=== PATIENT | female | born 1960 | race Caucasian/White ===

== ENCOUNTER 2017-04-17 06:31 | Observation (INO) | payer BC, OTHER ==
[2017-04-17] MEDS ORDERED: Aspirin 325 MG TAB ONE (07:58)
[2017-04-17 08:41] LABS: #Eosinphils 0.1 thou/uL (0.0-0.7); #Lymphocytes 1.5 thou/uL (1.20-3.40); #Monocytes 0.4 thou/uL (0.11-0.59); #Neutrophils 3.6 thou/uL (1.40-6.50); %Basophils 0.7 % (0.0-1.0); %Eosinophils 1.4 % (0.0-10.0); %Monocytes 6.5 % (0.0-10.0); %Neutrophils 64.3 % (42.0-75.0); Hemoglobin 14.7 g/dL (12.0-16.0); Mean Corpuscular HGB CONC 34.8 g/dL (32.0-36.0); Mean Corpuscular Hemoglobin 32.6 pg (27.0-31.0); Mean Corpuscular Volume 93.7 fl (81.0-99.0); Mean Platelet Volume 7.2 fL (7.4-10.4); Platelet Count 181 thou/uL (130-400); RBC Distribution Width 11.4 % (11.5-14.5); White Blood Cell (WBC) Count 5.6 thou/uL (4.8-10.8)
[2017-04-17 09:02] LABS: ALT (SGPT) 32 U/L (8-55); AST (SGOT) 22 U/L (5-34); Albumin 4.6 g/dL (3.5-5.0); Alkaline Phosphatase 77 U/L (40-150); Anion Gap 14 mmol/L (10-20); BUN (Urea Nitrogen) 12 mg/dL (9.8-20.1); Bilirubin, Total 1.2 mg/dL (0.2-1.2); CK (CPK) 80 U/L (29-168); Calc. Creatinine Clearance 0 mL/min (70-130); Calcium 9.8 mg/dL (7.8-10.44); Carbon Dioxide 30 mmol/L (22-29); Chloride 103 mmol/L (98-107); Estimated GFR-MDRD 77; Globulin 2.8 g/dL (2.4-3.5); Glucose 100 mg/dL (70-105); Potassium 3.7 mmol/L (3.5-5.1); Protein, Total 7.4 g/dL (6.0-8.3); Sodium 143 mmol/L (136-145)
[2017-04-17 09:06] LABS: CKMB 1.9 ng/mL (0-6.6); Troponin I Less than 0.010 ng/mL (< 0.028)
--- NOTE | 2017-04-17 09:17 | RAD ---
PORTABLE AP CHEST: Date: 04/17/17 HISTORY: Chest pain. COMPARISON: 12/09/15. FINDINGS: Cardiac silhouette and pulmonary vasculature are within normal limits. The lungs remain clear. Surgic al clips again overlie the left axillary region. There has been no interval change from prior exam. IMPRESSION: No acute cardiopulmonary process. POS: [facility]
[2017-04-17 12:11] LABS: Troponin I 0.016 ng/mL (< 0.028)
[2017-04-17] MEDS ORDERED: Ondansetron HCl/PF 4 MG/2 ML Vial IVP PRN (12:15)
[2017-04-17] MEDS ORDERED: Acetaminophen 325 MG TAB PO PRN ×2 (12:15→12:28)
[2017-04-17] MEDS ORDERED: Ondansetron ODT 4 MG TAB SL PRN (12:15)
[2017-04-17] MEDS ORDERED: Lorazepam 1 MG TAB PO PRN (12:28)
[2017-04-17] MEDS ORDERED: HYDROcodone/Acetaminophen 5/325 mg Tablet PO PRN (12:28)
[2017-04-17] MEDS ORDERED: hydrALAZINE 20 MG/ML VIAL SLOW IVP PRN (12:28)
[2017-04-17] MEDS ORDERED: Mag-Al 1200 mg/1200 mg/30 ML UDCUP PO PRN (12:28)
[2017-04-17] MEDS ORDERED: cloNIDine 0.1 MG TAB PO PRN (12:28)
[2017-04-17 12:50] VITALS: BMI 29.8
[2017-04-17 13:01] LABS: Cardiac Risk 2.7 (Less than 4.5)
[2017-04-17] MEDS: Nitroglycerin 2% Ointment 1 INCH/1 GM Packet TOP SCH ×2 (14:24→20:58)
[2017-04-17 14:56] LABS: Troponin I Less than 0.010 ng/mL (< 0.028)
--- NOTE | 2017-04-17 15:15 | HP ---
PRIMARY CARE PHYSICIAN: Dr. De Leon. Patient also sees Dr. Garcia locally for Cardiology. CHIEF COMPLAINT: Blood pressure has been fluctuating and not feeling good and chest tightness. HISTORY OF PRESENT ILLNESS: Ms. Noble is a very pleasant 56-year-old female that has a history of hypertension and dyslipidemia. She says that she was doing fine until last night when she says she jenn thomason was not feeling well, and she says that she took her blood pressure and noticed it was aroun d 158/90. She says it was almost time for her usual evening dose of blood pressure medication, so brad colin took them early and says that the blood pressure did go down. She went to sleep and then she awoke at 4:30 in the morning feeling anxious and having some chest tightness. She thought it could be an anxiety attack, as her recently 3 months ago. So, she took an alprazolam and not ed at that time that her blood pressure was 169/93, and because it had never been that high before brad shaw was concerned. She took an additional lisinopril and that is when she started feeling a bit heavy in her chest again, and for this reason, she came to the ER for evaluation. She says she has not had any recent problems such as cough or congestion. She does say that she occasionally will feel somet imes heart racing, and actually her primary care physician had increased her dose of carvedilol as a result of this. She denies taking any sthi-uwz-eukacuq decongestants, but did have some sinus compla ints and went to Urgent Care and had been given some long-acting steroids. Then this was followed up with a short-acting steroid at her primary care physician's office. REVIEW OF SYSTEMS: Constitutional: There have been no fevers or chills, no night sweats, no weight loss. HEENT: No headaches, no dizziness, no visual changes, no sore throat, rhinorrhea, neck pain, no adenopathy. Pulmonary: No hemoptysis, no cough, no wheezing. Cardiovascular: She denies any PN D, no orthopnea. No lower extremity edema. Gastrointestinal: No abdominal pain, no nausea, no vomi ting, no change in bowels. Genitourinary: No urinary frequency, hematuria, no hesitancy. Neurologi c: No focal weakness, numbness, no seizures. Psychiatric: No symptoms of anxiety or depression. S kin and Integument: No skin changes. No rash. PAST MEDICAL HISTORY: Significant for breast cancer and hypertension. PAST SURGICAL HISTORY: She had a metastatic lesion in the liver, which was removed. Also, has had a lumpectomy and hysterectomy and bunionectomy. ALLERGIES: No known drug allergies. SOCIAL HISTORY: She is . She is a nonsmoker. She drinks socially. FAMILY HISTORY: Significant for heart disease in her father, as well as her mother. They both in their 70s. CURRENT MEDICATIONS: Caltrate 600 plus D, lisinopril 10 mg daily, vitamin B complex with C daily, ca rvedilol 6.25 mg twice a day, venlafaxine 150 mg daily, aspirin 81 mg a day, Crestor 5 mg a daily, om ega 3 fatty acids once a day, and alprazolam 0.25 mg q.6 hours as needed. PHYSICAL EXAMINATION: GENERAL: She is alert and oriented. She appears to be in no acute distress. VITAL SIGNS: Blood pressure is 136/80, heart rate 68, respiratory rate of 18, temperature is 98.1. HEENT: Her pupils are equal, round, and reactive. Extraocular muscles are intact. Sclerae are anic teric. Throat: There is no erythema, no exudates. NECK: No adenopathy, no bruits. LUNGS: Clear. There is no wheezing, no rales. CARDIOVASCULAR: She has a normal S1, S2. I did not appreciate an S3 or S4, no murmurs, clicks, or r ubs. ABDOMEN: Soft, it is nontender, nondistended. Positive for bowel sounds. No rebound, no guarding. EXTREMITIES: There is no clubbing, cyanosis, no edema. NEUROLOGICALLY: The exam is nonfocal. LABORATORY RESULTS: White blood cell count 5.6, hemoglobin 14.7, hematocrit is 42.1, platelet count is 181. D-dimer is less than 0.27. Sodium is 143, potassium 3.7, chloride is 103, CO2 is 30, BUN of 12, creatinine 0.77, glucose is 100. TSH was 1.1889. ASSESSMENT AND PLAN: This is a pleasant 56-year-old female that presents to the emergency room with fluctuating blood pressures and chest tightness. She has a history of hypertension and dyslipidemia, which could place her at a higher risk for coronary artery disease. For this reason, we will go ahe ad and place her on observation, trend her cardiac enzymes, and get a nuclear stress test to further assess her risks. For hypertension, which appears to be labile, the elevation in blood pressure could be the result of the recent steroids that were given. We will continue to trend this and likely her primary care phys kate can help make adjustments in her blood pressure medication if needed. The patient has had an e chocardiogram or MUGA scan at [facility] [place] [place] to help in surveillance of heart failure, and she says th at her last ejection fraction was 60%. This was in surveillance, because she had been taking Hercept in for over 10 years. The ejection fraction is actually an improvement on that which she has had in the past. For this reason, we will not repeat an echo.
[2017-04-17] MEDS: Famotidine 20 MG TAB PO SCH (20:44)
[2017-04-18] MEDS: Nitroglycerin 2% Ointment 1 INCH/1 GM Packet TOP SCH ×2 (04:59→15:00)
[2017-04-18 05:41] LABS: #Eosinphils 0.1 thou/uL (0.0-0.7); #Lymphocytes 1.9 thou/uL (1.20-3.40); #Monocytes 0.5 thou/uL (0.11-0.59); %Basophils 0.6 % (0.0-1.0); %Eosinophils 2.4 % (0.0-10.0); %Lymphocytes 34.8 % (21.0-51.0); %Monocytes 8.9 % (0.0-10.0); %Neutrophils 53.3 % (42.0-75.0); Hemoglobin 13.2 g/dL (12.0-16.0); Mean Corpuscular Hemoglobin 32.8 pg (27.0-31.0); Mean Corpuscular Volume 93.8 fl (81.0-99.0); Mean Platelet Volume 7.2 fL (7.4-10.4); Platelet Count 156 thou/uL (130-400); RBC Distribution Width 11.4 % (11.5-14.5); Red Blood Cell (RBC) Count 4.03 mill/uL (4.20-5.40); White Blood Cell (WBC) Count 5.6 thou/uL (4.8-10.8)
[2017-04-18 05:47] LABS: Anion Gap 9 mmol/L (10-20); BUN (Urea Nitrogen) 12 mg/dL (9.8-20.1); Calc. Creatinine Clearance 106 mL/min (70-130); Calcium 8.7 mg/dL (7.8-10.44); Carbon Dioxide 27 mmol/L (22-29); Chloride 111 mmol/L (98-107); Estimated GFR-MDRD 86; Glucose 94 mg/dL (70-105); Potassium 3.7 mmol/L (3.5-5.1); Sodium 143 mmol/L (136-145)
[2017-04-18] MEDS ORDERED: Aspirin 325 MG TAB PO SCH (09:00)
[2017-04-18] MEDS: Famotidine 20 MG TAB PO SCH (11:30)
[2017-04-18] MEDS ORDERED: Ibuprofen 600 MG TAB PO PRN (12:19)
[2017-04-18 16:16] VITALS: BP 180/80; TEMP 98.1
--- NOTE | 2017-04-18 16:16 | NM ---
MYOCARDIAL PERFUSION STUDY: Date: 04-18-17 History: Chest pain, dyspnea, hypertension, dyslipidemia. Family history of coronary artery disease. Radiopharmaceutical: 28.3 mCi Technetium 99M Sestamibi, IV at stress and 9 mCi Technetium 99M Sestami bi, IV at rest. This examination was performed as an exercise stress myocardial perfusion study following routine Bru ce protocol. The resting heart rate is 67 beats/minute with a maximal heart rate of 150 beats/minute which represents 92% of maximum predicted effective heart rate. FINDINGS: There is diminished uptake radiotracer seen within the distal anterior left ventricular wall. The def ect is greater on resting acquisition compared to the stress acquisition. There is no reversible defe ct identified. The images show normal ventricular wall motion and wall thickening. The calculated lef t ventricular ejection fraction is 64%. IMPRESSION: 1. Probably normal myocardial perfusion study without evidence of a reversible defect seen to suggest ischemia. A relatively fixed defect in the distal anterior septal wall is likely due to soft tissue attenuation as there is normal ventricular wall motion and wall thickening in this region. 2. Normal LV function with normal LVEF of 64%. POS: [facility]
--- NOTE | 2017-04-18 16:48 | PDOC.PN ---
- Subjective Encounter Start Date: 04/18/17 Encounter Start Time: 16:46 Ms. Noble was seen in follow-up. She says she still feels an occasional tightness in her chest. no other complaints. - Objective Resuscitation Status: Resuscitation Status FULL:Full Resuscitation MAR Reviewed: Yes Vital Signs & Weight: Vital Signs (12 hours) Temp Pulse Resp BP Pulse Ox 04/18/17 15:14 98.1 F 66 16 180/80 H 96 04/18/17 11:37 98.5 F 82 16 04/18/17 11:35 98.3 F 70 16 142/65 H 96 04/18/17 07:32 98.5 F 82 16 117/70 97 04/18/17 04:54 98.6 F 72 16 122/68 95 Weight Weight 167 lb I&O: 04/17/17 04/18/17 04/19/17 06:59 06:59 06:59 Intake Total 1160 Output Total 1500 Balance -340 Result Diagrams: 04/18/17 04:54 04/18/17 04:54 Phys Exam - Physical Examination HEENT: PERRLA Respiratory: no wheezing, no rales, no rhonchi, clear to auscultation bilateral Cardiovascular: RRR, no significant murmur Gastrointestinal: soft, non-tender, positive bowel sounds Musculoskeletal: no edema Dx/Plan (1) Chest pain Code(s): R07.9 - CHEST PAIN, UNSPECIFIED Status: Acute (2) Hypertension Code(s): I10 - ESSENTIAL (PRIMARY) HYPERTENSION Status: Acute - Plan * Chest pain- stress test results noted * Stable for discharge home.
[2017-04-18] MEDS ORDERED: Rosuvastatin 5 MG TAB PO SCH (21:00)
[2017-04-18] MEDS ORDERED: Carvedilol 25 MG TAB PO SCH (21:00)
[2017-04-18] MEDS ORDERED: Lisinopril 10 MG TAB PO SCH (21:00)
--- NOTE | 2017-04-19 01:13 | DIS ---
DATE OF ADMISSION: 04/17/2017 DATE OF DISCHARGE: 04/18/2017 PRIMARY CARE PHYSICIAN: Dr. De Leon. DISCHARGE DISPOSITION: Home. PRIMARY DISCHARGE DIAGNOSES: 1. Chest pain, probable noncardiac. 2. Hypertension. 3. History of breast cancer. 4. Generalized anxiety. DISCHARGE MEDICATIONS: Include Effexor 75 mg 2 tablets a day, Crestor 5 mg daily, lisinopril 10 mg d aily, carvedilol 25 mg twice daily and aspirin 81 mg a day. CODE STATUS: FULL CODE. ALLERGIES: No known drug allergies. PROCEDURES DONE DURING ADMISSION: The patient had a nuclear stress test, which was negative for any reversible ischemia. There was some fixed defect in the distal anterior septal wall, which was likel y due to soft tissue attenuation. The ejection fraction was estimated at 64%. Code status again FUL L CODE. HOSPITAL COURSE: Ms. Noble is a pleasant 56-year-old female who was admitted to the hospital after having complaints of some tightness in her chest and also fluctuating blood pressures. She was plac ed in observation and underwent a nuclear stress test. The test was essentially negative and the pat ient feels like some of her symptoms could be attributable to some stress and her recently pa ssed away only 3 months ago. She will be following up with her primary care physician in a couple of weeks and currently no changes will be made in her medications.
== END 2017-04-18 17:35 | disposition home or self-care (01) ==
LOC: ERS 06:31 → 2SW 11:48
PROVIDERS: ADMIT Internal Medicine; ATTEND Internal Medicine
DX: R07.89 Other chest pain (principal); I10 Essential (primary) hypertension; F41.1 Generalized anxiety disorder; E78.5 Hyperlipidemia, unspecified; Z79.899 Other long term (current) drug therapy; Z85.3 Personal history of malignant neoplasm of breast; Z85.05 Personal history of malignant neoplasm of liver; Z79.82 Long term (current) use of aspirin; Z90.710 Acquired absence of both cervix and uterus; Z90.49 Acquired absence of other specified parts of digestive tract; Z90.10 Acquired absence of unspecified breast and nipple; Z98.890 Other specified postprocedural states
CPT/HCPCS: 36415; 71045; 78452; 80048; 80053; 80061; 82553; 83880; 84443; 84484; 85025; 85379; 93005; 93017; 94760; A9500; G0378

== ENCOUNTER 2018-03-15 03:19 | Emergency (ER) | payer BC, OTHER ==
[2018-03-15 04:18] LABS: #Eosinphils 0.1 thou/uL (0.0-0.7); #Lymphocytes 1.6 thou/uL (1.20-3.40); #Monocytes 0.6 thou/uL (0.11-0.59); #Neutrophils 5.6 thou/uL (1.40-6.50); %Eosinophils 1.3 % (0.0-10.0); %Lymphocytes 20.1 % (21.0-51.0); %Monocytes 7.7 % (0.0-10.0); %Neutrophils 70.9 % (42.0-75.0); Mean Corpuscular HGB CONC 35.9 g/dL (32.0-36.0); Mean Corpuscular Volume 89.3 fL (78.0-98.0); Mean Platelet Volume 7.2 fL (7.4-10.4); Platelet Count 150 thou/uL (130-400); RBC Distribution Width 11.2 % (11.5-14.5); Red Blood Cell (RBC) Count 4.06 mill/uL (4.20-5.40); White Blood Cell (WBC) Count 7.9 thou/uL (4.8-10.8)
[2018-03-15 04:38] LABS: ALT (SGPT) 20 U/L (8-55); AST (SGOT) 16 U/L (5-34); Alkaline Phosphatase 74 U/L (40-150); Anion Gap 12 mmol/L (10-20); BUN (Urea Nitrogen) 10 mg/dL (9.8-20.1); Bilirubin, Total 0.9 mg/dL (0.2-1.2); Calc. Creatinine Clearance 0 mL/min (70-130); Calcium 9.1 mg/dL (7.8-10.44); Carbon Dioxide 24 mmol/L (22-29); Chloride 108 mmol/L (98-107); Estimated GFR-MDRD 81; Globulin 2.7 g/dL (2.4-3.5); Glucose 115 mg/dL (70-105); Potassium 3.7 mmol/L (3.5-5.1); Protein, Total 6.7 g/dL (6.0-8.3); Sodium 140 mmol/L (136-145)
[2018-03-15 04:50] LABS: Bilirubin Negative (Negative); Blood, Urine Small (Negative); Clarity CLEAR (Clear); Glucose, Urine (Dipstick) Negative (Negative); Leukocyte Trace (Negative); Nitrite Negative (Negative); Protein, Urine (Dipstick) Negative (Neg-Trace); Specific Gravity, Urine 1.004 (1.002-1.036); Urobilinogen 0.2 mg/dL (0.2-1.0); pH, Urine 7.5 (5.0-9.0)
[2018-03-15 05:07] LABS: Bacteria/HPF None Seen HPF (None Seen); Hyaline Casts/LPF 0-3 HYALINE CAST LPF (0-3 Hyaline); RBC/HPF 0-3 HPF (0-3); Squamous Epithelial 0-3 HPF (0-3); WBC/HPF 0-3 HPF (0-3)
--- NOTE | 2018-03-15 08:07 | RAD ---
TWO VIEWS CHEST: Comparison: 06-14-15 History: Near syncope. FINDINGS: Two views of the chest show normal sized cardiomediastinal silhouette. There is no evidence of consol idation, mass, or pleural effusion. The bones are unremarkable. IMPRESSION: No evidence of acute cardiopulmonary disease. POS: [facility]
== END 2018-03-15 06:44 | disposition home or self-care (01) ==
LOC: ERS 03:19
DX: R55 Syncope and collapse (principal); I49.9 Cardiac arrhythmia, unspecified; E78.5 Hyperlipidemia, unspecified; I10 Essential (primary) hypertension; Z79.899 Other long term (current) drug therapy; Z79.82 Long term (current) use of aspirin
CPT/HCPCS: 36415; 71046; 80053; 81003; 81015; 84484; 85025; 93005; 96360; 96361

== ENCOUNTER 2018-08-31 06:55 | Emergency (ER) | payer BC ==
[2018-08-31] MEDS ORDERED: Ondansetron PF 4 MG/2 ML Vial ONE (07:35)
[2018-08-31 07:36] LABS: #Eosinphils 0.1 thou/uL (0.0-0.7); #Lymphocytes 1.3 thou/uL (1.20-3.40); #Monocytes 0.7 thou/uL (0.11-0.59); #Neutrophils 6.1 thou/uL (1.40-6.50); %Basophils 0.3 % (0.0-1.0); %Eosinophils 1.1 % (0.0-10.0); %Lymphocytes 15.6 % (21.0-51.0); %Monocytes 8.1 % (0.0-10.0); %Neutrophils 74.8 % (42.0-75.0); Hemoglobin 13.8 g/dL (12.0-16.0); Mean Corpuscular HGB CONC 34.8 g/dL (32.0-36.0); Mean Corpuscular Hemoglobin 31.9 pg (27.0-31.0); Mean Corpuscular Volume 91.6 fL (78.0-98.0); Mean Platelet Volume 7.3 fL (7.4-10.4); Platelet Count 160 thou/uL (130-400); RBC Distribution Width 11.6 % (11.5-14.5); Red Blood Cell (RBC) Count 4.33 mill/uL (4.20-5.40); White Blood Cell (WBC) Count 8.2 thou/uL (4.8-10.8)
[2018-08-31 07:52] LABS: ALT (SGPT) 30 U/L (8-55); AST (SGOT) 22 U/L (5-34); Alkaline Phosphatase 86 U/L (40-150); Anion Gap 12 mmol/L (10-20); BUN (Urea Nitrogen) 9 mg/dL (9.8-20.1); Bilirubin, Total 0.6 mg/dL (0.2-1.2); Calc. Creatinine Clearance 0 mL/min (70-130); Carbon Dioxide 27 mmol/L (22-29); Chloride 102 mmol/L (98-107); Estimated GFR-MDRD 76; Globulin 2.7 g/dL (2.4-3.5); Glucose 113 mg/dL (70-105); Lipase 33 U/L (8-78); Potassium 3.7 mmol/L (3.5-5.1); Protein, Total 6.7 g/dL (6.0-8.3); Sodium 137 mmol/L (136-145)
== END 2018-08-31 09:07 | disposition home or self-care (01) ==
LOC: ERS 06:55
DX: R19.7 Diarrhea, unspecified (principal); R10.9 Unspecified abdominal pain; R11.0 Nausea; R10.817 Generalized abdominal tenderness; I10 Essential (primary) hypertension; E78.5 Hyperlipidemia, unspecified; I49.9 Cardiac arrhythmia, unspecified
CPT/HCPCS: 36415; 80053; 83690; 85025; 96361; 96372; 96374; J0500; J2405

== ENCOUNTER 2018-12-13 23:01 | Emergency (ER) | payer BC ==
[~2018-12-13 23:01] MED LIST: ISOVUE-370 76%-LOCM 1 ML ONE
[2018-12-13 23:40] LABS: #Eosinphils 0.2 thou/uL (0.0-0.7); #Lymphocytes 2.1 thou/uL (1.20-3.40); #Monocytes 0.5 thou/uL (0.11-0.59); %Eosinophils 3.1 % (0.0-10.0); %Lymphocytes 44.3 % (21.0-51.0); %Monocytes 10.8 % (0.0-10.0); %Neutrophils 40.8 % (42.0-75.0); Mean Corpuscular Hemoglobin 32.4 pg (27.0-31.0); Mean Corpuscular Volume 89.8 fL (78.0-98.0); Mean Platelet Volume 7.1 fL (7.4-10.4); Platelet Count 154 thou/uL (130-400); RBC Distribution Width 11.6 % (11.5-14.5); Red Blood Cell (RBC) Count 4.02 mill/uL (4.20-5.40); White Blood Cell (WBC) Count 4.8 thou/uL (4.8-10.8)
--- NOTE | 2018-12-13 23:58 | CT ---
CTA Angio Chest W WO Con History: Hemoptysis. Cough Comparison: Radiograph March 2018 Findings: CT angiogram chest performed after the intravenous administration of contrast. 3-D renderin g provided. Distal embolism evaluation is limited due to the delayed phase of contrast. No proximal segmental pul monary arterial filling defect. Limited evaluation of the upper abdomen is unremarkable. Few groundglass opacities within the lingula and left upper lobe. Separate 5 mm groundglass nodule po sterior segment left upper lobe axial image 25. Remainder of the lungs are clear. No acute displaced rib fracture. Left axillary surgical clips. Impression: Few ground glass opacities within the lingula and left upper lobe of the imaging appearan ce be posttreatment in nature given the left axillary surgical clips although aspiration or atypical infection is also possible. Given there is a separate single round nodule within the posteri or basal left upper lobe axial image 25, follow-up CT of the chest in 6 months recommended.
[2018-12-14 00:02] LABS: ALT (SGPT) 24 U/L (8-55); AST (SGOT) 21 U/L (5-34); Alkaline Phosphatase 91 U/L (40-110); Anion Gap 12 mmol/L (10-20); BUN (Urea Nitrogen) 16 mg/dL (9.8-20.1); Bilirubin, Total 0.3 mg/dL (0.2-1.2); Calc. Creatinine Clearance 0 mL/min (70-130); Calcium 9.1 mg/dL (7.8-10.44); Carbon Dioxide 29 mmol/L (22-29); Chloride 103 mmol/L (98-107); Estimated GFR-MDRD 71; Globulin 2.4 g/dL (2.4-3.5); Glucose 104 mg/dL (70-105); Potassium 3.5 mmol/L (3.5-5.1); Protein, Total 6.4 g/dL (6.0-8.3); Sodium 140 mmol/L (136-145)
== END 2018-12-14 00:26 | disposition home or self-care (01) ==
LOC: ERS 23:01
DX: R04.2 Hemoptysis (principal); J18.9 Pneumonia, unspecified organism; E78.5 Hyperlipidemia, unspecified; Z79.899 Other long term (current) drug therapy; Z79.82 Long term (current) use of aspirin
CPT/HCPCS: 36415; 71275; 80053; 85025; Q9966

== ENCOUNTER 2023-08-25 09:08 | Outpatient (CLI) | payer BC ==
[2023-08-25] MEDS ORDERED: Iopamidol 370 76% 100 ML VIAL ONE (10:06)
== END 2023-08-25 09:09 | disposition home or self-care (01) ==
LOC: BICCT 09:08
PROVIDERS: ATTEND Internal Medicine Hematology & Oncology
DX: C50.919 Malignant neoplasm of unspecified site of unspecified female breast (principal); C78.7 Secondary malignant neoplasm of liver and intrahepatic bile duct
CPT/HCPCS: 71260; 74177; 82565

== ENCOUNTER 2023-09-27 13:40 | Outpatient (CLI) | payer BC | END 2023-09-27 13:41 | disposition home or self-care (01) | LOC: BICULT 13:40 | PROVIDERS: ATTEND Internal Medicine Hematology & Oncology | DX: E04.2 Nontoxic multinodular goiter (principal) | CPT/HCPCS: 76536 ==